=== PATIENT | female | born 1975 | race Two or more races ===

== ENCOUNTER 2020-11-08 12:38 | Emergency (ER) | payer MEDICAID ==
[~2020-11-08] VITALS: Ht 149.9 cm; Wt 35.8 kg
--- NOTE | 2020-11-08 13:00 | NUR ---
intermittent nausea and vomiting x 2 weeks. Patient a/ox4, breathing even and unlabored, no sob noted, needs attended.
[2020-11-08 13:26] LABS: BASOPHILS % (AUTO) 0.2 % (0.0-2.0); EOSINOPHILS % (AUTO) 0.5 % (0.0-6.0); HEMATOCRIT 38 % (33-45); HEMOGLOBIN 12.3 g/dL (11.5-14.8); LYMPHOCYTES % (AUTO) 15.9 % (20.0-44.0); MEAN CORPUSCULAR HGB CONC 32 g/dl (31.0-36.0); MEAN CORPUSCULAR VOLUME 88 fL (82-100); MONOCYTES # (AUTO) 0.3 K/uL (0.1-1.30); MONOCYTES % (AUTO) 5.7 % (2.0-12.0); NEUTROPHILS # (AUTO) 4.7 K/uL (1.8-8.9); NEUTROPHILS % (AUTO) 77.7 % (43.0-81.0); PLATELET COUNT (AUTO) 133 K/uL (150-450); WHITE BLOOD COUNT (AUTO) 6.1 K/uL (4.3-11.0)
[2020-11-08 13:34] LABS: CALCIUM, SERUM 8.9 mg/dL (8.5-10.1); CARBON DIOXIDE 24 mmol/L (21-32); CHLORIDE 104 mmol/L (98-107); CREATININE 0.8 mg/dL (0.6-1.3); GLUCOSE 90 mg/dL (74-106); POTASSIUM 3.8 mmol/L (3.5-5.1); SODIUM SERUM 135 mmol/L (136-145); UREA NITROGEN, BLOOD 14 mg/dL (7-18)
[2020-11-08 13:40] LABS: ALANINE AMINOTRANSFERASE 37 U/L (12-78); ALBUMIN 3.2 g/dL (3.4-5.0); ALKALINE PHOSPHATASE 66 U/L (46-116); ASPARTATE AMINOTRANSFERASE 28 U/L (15-37); BILIRUBIN,DIRECT 0.2 mg/dL (0.0-0.2); BILIRUBIN,TOTAL 1.3 mg/dL (0.2-1.0); TOTAL PROTEIN, SERUM 7.7 g/dL (6.4-8.2)
[2020-11-08] MEDS: MORPHINE SULFATE INJ 2 MG/ML DISP.SYRIN IV ONE (14:17)
--- NOTE | 2020-11-08 14:20 | NUR ---
Patient resting, c/o chronic pain on left arm and left leg, per dr. dey, follow up with primary care for a neurology consult. Patient is medically cleared, stable for discharge.
--- NOTE | 2020-11-08 14:32 | NUR ---
Patient discharged to home in stable condition. Written and verbal after care instructions given translated in sinhala. Patient verbalizes understanding of instruction. Assisted to waiting room.
[2020-11-08 14:33] VITALS: BP 102/59
== END 2020-11-08 14:33 | disposition home or self-care (01) ==
LOC: ER 12:40
DX: R53.1 Weakness (principal); R11.2 Nausea with vomiting, unspecified; R41.82 Altered mental status, unspecified
CPT/HCPCS: 36415; 70450-TC; 80048-TC; 80076-TC; 84484-TC; 84703-TC; 85025-TC